=== PATIENT | male | born 1980 | race Caucasian/White ===

== ENCOUNTER 2018-10-23 14:16 | Emergency (ER) | payer OTHER ==
[2018-10-23] MEDS: SOD CHLORIDE 0.9% 1,000 ML IV (19:16)
[2018-10-23] MEDS: KETOROLAC 15 MG INJ IV (19:16)
[2018-10-23 19:17] LABS: ADD MAN DIFF? NO
[2018-10-23 19:19] LABS: BASOPHILS % 0.3 % (0.0-2.0); EOSINOPHILS % 0.4 % (0.0-7.0); HEMATOCRIT 31.9 % (42.0-52.0); LYMPHOCYTES # 2.1 10^3/ul (0.8-2.9); LYMPHOCYTES % 28.9 % (15.0-51.0); MEAN CORPUSCULAR HEMOGLOBIN 31.7 pg (29.0-33.0); MEAN CORPUSCULAR HGB CONC 34.5 g/dl (32.0-37.0); MEAN CORPUSCULAR VOLUME 91.9 fl (82.0-101.0); MEAN PLATELET VOLUME 8.6 fl (7.4-10.4); MONOCYTE # 0.7 10^3/ul (0.3-0.9); MONOCYTES % 9.5 % (0.0-11.0); NEUTROPHIL # 4.4 10^3/ul (1.6-7.5); NEUTROPHILS % 60.1 % (39.0-77.0); PLATELET COUNT 276 10^3/UL (140-415); RED BLOOD COUNT 3.47 10^6/ul (4.70-6.10); RED CELL DISTRIBUTION WIDTH 12.4 % (11.5-14.5)
[2018-10-23 19:19] LABS: WHITE BLOOD COUNT 7.3 10^3/ul (4.8-10.8)
[2018-10-23 19:45] LABS: ALANINE AMINOTRANSFERASE 37 IU/L (13-69); ALBUMIN/GLOBULIN RATIO 1.61; ALKALINE PHOSPHATASE 78 IU/L (42-121); ANION GAP 15 (5-13); ASPARTATE AMINO TRANSFERASE 27 IU/L (15-46); BILIRUBIN,INDIRECT 0.5 mg/dl (0-1.1); BILIRUBIN,TOTAL 0.5 mg/dl (0.2-1.3); BLOOD UREA NITROGEN 9 mg/dl (7-20); CALCIUM 10.2 mg/dl (8.4-10.2); CARBON DIOXIDE 25 mmol/L (21-31); CHLORIDE 102 mmol/L (97-110); CREATININE 0.66 mg/dl (0.61-1.24); Estimated GFR > 60 mL/min (>60); GLUCOSE 86 mg/dl (70-220); LIPASE 39 U/L (23-300); POTASSIUM 3.8 mmol/L (3.5-5.1); SODIUM 142 mmol/L (135-144); TOTAL PROTEIN 8.1 g/dl (6.1-8.1)
[2018-10-23 19:56] LABS: TROPONIN-I < 0.012 ng/ml (0.000-0.120)
[2018-10-23 20:06] LABS: ADD UMIC YES; UR ASCORBIC ACID NEGATIVE (NEGATIVE); UR BILIRUBIN (Dip) NEGATIVE (NEGATIVE); UR BLOOD (Dip) 1+ mg/dL (NEGATIVE); UR CLARITY SLIGHTLY CLOUDY (CLEAR); UR COLOR YELLOW (YELLOW); UR GLUCOSE (Dip) NEGATIVE (NEGATIVE); UR KETONES (Dip) TRACE mg/dL (NEGATIVE); UR LEUKOCYTE ESTERASE (Dip) NEGATIVE Leu/ul (NEGATIVE); UR MUCUS MANY /HPF (NONE SEEN); UR NITRITE (Dip) NEGATIVE (NEGATIVE); UR RBC 0 /HPF (0-5); UR SPECIFIC GRAVITY (Dip) 1.032 (1.003-1.030); UR TOTAL PROTEIN (Dip) 3+ mg/dl (NEGATIVE); UR UROBILINOGEN (Dip) NEGATIVE (NEGATIVE); UR WBC 2 /HPF (0-5)
== END 2018-10-23 20:46 | disposition home or self-care (01) ==
LOC: E/R 14:16
DX: M94.0 Chondrocostal junction syndrome [Tietze] (principal); R80.9 Proteinuria, unspecified
CPT/HCPCS: 36415; 71045; 80053; 81001; 83690; 84484; 85025; 93005; 96374; 99285-25

== ENCOUNTER 2018-12-17 16:30 | Inpatient (IN) | payer OTHER, BC ==
[2018-12-17 17:14] LABS: ADD MAN DIFF? NO
[2018-12-17 17:19] LABS: BASOPHILS % 0.4 % (0.0-2.0); EOSINOPHILS # 0.1 10^3/ul (0.0-0.5); EOSINOPHILS % 0.8 % (0.0-7.0); HEMATOCRIT 30.1 % (42.0-52.0); HEMOGLOBIN 9.7 g/dl (14.0-18.0); LYMPHOCYTES # 1.7 10^3/ul (0.8-2.9); LYMPHOCYTES % 21.5 % (15.0-51.0); MEAN CORPUSCULAR HGB CONC 32.2 g/dl (32.0-37.0); MEAN CORPUSCULAR VOLUME 96.2 fl (82.0-101.0); MONOCYTE # 1.1 10^3/ul (0.3-0.9); MONOCYTES % 13.7 % (0.0-11.0); NEUTROPHIL # 4.9 10^3/ul (1.6-7.5); NEUTROPHILS % 62.8 % (39.0-77.0); PLATELET COUNT 355 10^3/UL (140-415); RED BLOOD COUNT 3.13 10^6/ul (4.70-6.10); RED CELL DISTRIBUTION WIDTH 13.9 % (11.5-14.5)
[2018-12-17 17:19] LABS: WHITE BLOOD COUNT 7.8 10^3/ul (4.8-10.8)
[2018-12-17] MEDS: SODIUM CHLORIDE 0.9% 1L BAG IV* (17:30)
[2018-12-17] MEDS: ACETAMINOPHEN 325 MG TAB PO (17:30)
[2018-12-17] MEDS: VANCOMYCIN 1 GM (PMX) 250 ML IVPB ×2 (17:30→18:06)
[2018-12-17 17:34] LABS: ADD UMIC YES; UR ASCORBIC ACID NEGATIVE (NEGATIVE); UR BILIRUBIN (Dip) NEGATIVE (NEGATIVE); UR BLOOD (Dip) 1+ mg/dL (NEGATIVE); UR CLARITY SLIGHTLY CLOUDY (CLEAR); UR COLOR YELLOW (YELLOW); UR GLUCOSE (Dip) NEGATIVE (NEGATIVE); UR KETONES (Dip) TRACE mg/dL (NEGATIVE); UR LEUKOCYTE ESTERASE (Dip) NEGATIVE Leu/ul (NEGATIVE); UR MUCUS FEW /HPF (NONE SEEN); UR NITRITE (Dip) NEGATIVE (NEGATIVE); UR RBC 0 /HPF (0-5); UR SPECIFIC GRAVITY (Dip) 1.023 (1.003-1.030); UR TOTAL PROTEIN (Dip) 2+ mg/dl (NEGATIVE); UR UROBILINOGEN (Dip) NEGATIVE (NEGATIVE); UR WBC 2 /HPF (0-5)
[2018-12-17 17:37] LABS: INR 1.06; PROTIME 13.9 Sec (11.9-14.9); PT RATIO 1.1
[2018-12-17 17:38] LABS: PARTIAL THROMBOPLASTIN TIME 33.9 Sec (23.0-35.0)
[2018-12-17 17:43] LABS: ALANINE AMINOTRANSFERASE 31 IU/L (13-69); ALBUMIN 4.7 g/dl (3.3-4.9); ALBUMIN/GLOBULIN RATIO 1.38; ALKALINE PHOSPHATASE 107 IU/L (42-121); ANION GAP 12 (5-13); ASPARTATE AMINO TRANSFERASE 21 IU/L (15-46); BILIRUBIN,INDIRECT 0.2 mg/dl (0-1.1); BILIRUBIN,TOTAL 0.2 mg/dl (0.2-1.3); BLOOD UREA NITROGEN 6 mg/dl (7-20); CALCIUM 10.2 mg/dl (8.4-10.2); CARBON DIOXIDE 26 mmol/L (21-31); CHLORIDE 101 mmol/L (97-110); CREATININE 0.69 mg/dl (0.61-1.24); Estimated GFR > 60 mL/min (>60); GLUCOSE 99 mg/dl (70-220); POTASSIUM 4.2 mmol/L (3.5-5.1); SODIUM 139 mmol/L (135-144); TOTAL PROTEIN 8.1 g/dl (6.1-8.1)
[2018-12-17] MEDS: CEFEPIME 2GM/50 ML (PMX) 50 ML IVPB (17:45)
[2018-12-17 17:54] LABS: TROPONIN-I < 0.012 ng/ml (0.000-0.120)
[2018-12-17] MEDS: ALBUTEROL 0.083% (NEB) 2.5 MG/3 ML AMP NEB (17:58)
[2018-12-17] MEDS: SOD CHLORIDE 0.9% 1,000 ML IV ×2 (19:11→22:35)
[2018-12-17] MEDS ORDERED: ACETAMINOPHEN 325 MG TAB PO (19:30)
[2018-12-17] MEDS ORDERED: ONDANSETRON 4 MG INJ IV (19:30)
[2018-12-17] MEDS: LEVALBUTEROL (NEB) 1.25 MG/0.5 ML AMP INH (19:53)
[2018-12-17] MEDS: SOD CHLORIDE 0.9% 100 ML (19:59)
[2018-12-17] MEDS ORDERED: VANCOMYCIN IV PER PHARMACY XX (20:00)
[2018-12-17] MEDS ORDERED: NACL 0.9% 3 ML SYG IV (20:00)
[2018-12-17] MEDS: IOHEXOL 350MG/ML 50 ML BTL (20:00)
[2018-12-17] MEDS: IOHEXOL 100 ML (20:00)
[2018-12-17] MEDS: VANCOMYCIN 500 MG (PMX) 100 ML IVPB (22:36)
[2018-12-18 00:05] LABS: LACTIC ACID 1.9 mmol/L (0.5-2.0)
[2018-12-18] MEDS: CEFEPIME 2GM/50 ML (PMX) 50 ML IVPB ×4 (00:43→21:05)
[2018-12-18] MEDS: ACETAMINOPHEN 325 MG TAB PO (05:01)
[2018-12-18 05:24] LABS: ADD MAN DIFF? NO
[2018-12-18 05:26] LABS: WHITE BLOOD COUNT 7.8 10^3/ul (4.8-10.8)
[2018-12-18 05:26] LABS: BASOPHILS % 0.1 % (0.0-2.0); EOSINOPHILS % 0.3 % (0.0-7.0); HEMATOCRIT 25.9 % (42.0-52.0); LYMPHOCYTES # 1.8 10^3/ul (0.8-2.9); LYMPHOCYTES % 22.6 % (15.0-51.0); MEAN CORPUSCULAR HEMOGLOBIN 30.3 pg (29.0-33.0); MEAN CORPUSCULAR HGB CONC 30.9 g/dl (32.0-37.0); MEAN CORPUSCULAR VOLUME 98.1 fl (82.0-101.0); MEAN PLATELET VOLUME 9.2 fl (7.4-10.4); MONOCYTES % 13.2 % (0.0-11.0); NEUTROPHIL # 4.9 10^3/ul (1.6-7.5); NEUTROPHILS % 63.3 % (39.0-77.0); PLATELET COUNT 312 10^3/UL (140-415); RED BLOOD COUNT 2.64 10^6/ul (4.70-6.10)
[2018-12-18 05:41] LABS: ALANINE AMINOTRANSFERASE 25 IU/L (13-69); ALBUMIN 3.9 g/dl (3.3-4.9); ALBUMIN/GLOBULIN RATIO 1.34; ALKALINE PHOSPHATASE 74 IU/L (42-121); ANION GAP 17 (5-13); ASPARTATE AMINO TRANSFERASE 15 IU/L (15-46); BILIRUBIN,INDIRECT 0.2 mg/dl (0-1.1); BILIRUBIN,TOTAL 0.2 mg/dl (0.2-1.3); BLOOD UREA NITROGEN 4 mg/dl (7-20); CALCIUM 8.8 mg/dl (8.4-10.2); CARBON DIOXIDE 24 mmol/L (21-31); CHLORIDE 101 mmol/L (97-110); CREATININE 0.57 mg/dl (0.61-1.24); Estimated GFR > 60 mL/min (>60); GLUCOSE 99 mg/dl (70-220); MAGNESIUM 1.9 mg/dl (1.7-2.5); POTASSIUM 3.7 mmol/L (3.5-5.1); SODIUM 142 mmol/L (135-144); TOTAL PROTEIN 6.8 g/dl (6.1-8.1)
[2018-12-18] MEDS: GUAIFENESIN 20 MG/ML 5ML CUP PO ×2 (06:01→21:47)
[2018-12-18] MEDS: VANCOMYCIN 1 GM 250 ML IVPB ×3 (06:01→22:21)
[2018-12-18 07:05] LABS: HEMOGLOBIN A1C 5.2 % (0-5.9)
[2018-12-18] MEDS ORDERED: morphine 2 MG INJ IV (09:30)
[2018-12-18] MEDS ORDERED: HYDROCODONE/APAP (5/325) TAB PO (09:30)
[2018-12-18] MEDS: SOD CHLORIDE 0.9% 1,000 ML IV (10:20)
[2018-12-18] MEDS: ENOXAPARIN 40 MG/0.4 ML SYG SC (10:27)
[2018-12-18] MEDS: HYDROCODONE/APAP (10/325) TAB PO ×2 (13:46→21:03)
[2018-12-18 21:42] LABS: VANCOMYCIN,TROUGH 14.6 ug/ml (10.0-20.0)
[2018-12-19] MEDS: SOD CHLORIDE 0.9% 1,000 ML IV (00:49)
[2018-12-19] MEDS: CEFEPIME 2GM/50 ML (PMX) 50 ML IVPB (05:23)
[2018-12-19] MEDS: VANCOMYCIN 1 GM 250 ML IVPB (06:21)
[2018-12-19] MEDS: HYDROCODONE/APAP (10/325) TAB PO ×2 (06:26→11:49)
[2018-12-19 06:27] LABS: ADD MAN DIFF? NO
[2018-12-19 06:33] LABS: BASOPHILS % 0.4 % (0.0-2.0); EOSINOPHILS # 0.1 10^3/ul (0.0-0.5); EOSINOPHILS % 1.6 % (0.0-7.0); HEMATOCRIT 24.9 % (42.0-52.0); HEMOGLOBIN 7.9 g/dl (14.0-18.0); LYMPHOCYTES # 1.3 10^3/ul (0.8-2.9); MEAN CORPUSCULAR HGB CONC 31.7 g/dl (32.0-37.0); MEAN CORPUSCULAR VOLUME 97.6 fl (82.0-101.0); MEAN PLATELET VOLUME 9.5 fl (7.4-10.4); MONOCYTE # 0.8 10^3/ul (0.3-0.9); MONOCYTES % 13.7 % (0.0-11.0); NEUTROPHIL # 3.4 10^3/ul (1.6-7.5); NEUTROPHILS % 60.2 % (39.0-77.0); PLATELET COUNT 277 10^3/UL (140-415); RED BLOOD COUNT 2.55 10^6/ul (4.70-6.10)
[2018-12-19 06:33] LABS: WHITE BLOOD COUNT 5.7 10^3/ul (4.8-10.8)
[2018-12-19 07:08] LABS: ANION GAP 13 (5-13); BLOOD UREA NITROGEN 6 mg/dl (7-20); CALCIUM 8.9 mg/dl (8.4-10.2); CARBON DIOXIDE 23 mmol/L (21-31); CHLORIDE 106 mmol/L (97-110); Estimated GFR > 60 mL/min (>60); GLUCOSE 86 mg/dl (70-220); MAGNESIUM 2.2 mg/dl (1.7-2.5); PHOSPHORUS 3.5 mg/dl (2.5-4.9); SODIUM 142 mmol/L (135-144)
[2018-12-19 07:24] LABS: IRON 33 ug/dl (35-150)
[2018-12-19 07:35] LABS: % IRON SATURATION 14 % SAT (22-52); TOTAL IRON BINDING CAPACITY 234 ug/dl (241-421)
[2018-12-19] MEDS: GUAIFENESIN/DM 5ML CUP PO ×2 (07:46→11:49)
[2018-12-19 08:01] LABS: FOLATE 11.8 ng/ml (2.8-20.0)
[2018-12-19] MEDS: ENOXAPARIN 40 MG/0.4 ML SYG SC (08:51)
== END 2018-12-19 12:15 | disposition home or self-care (01) | DRG 564 ==
LOC: E/R 16:30 → 6WM 19:12
DX: S22.20XA Unspecified fracture of sternum, initial encounter for closed fracture (principal); J18.9 Pneumonia, unspecified organism; S22.059A Unspecified fracture of T5-T6 vertebra, initial encounter for closed fracture; C90.00 Multiple myeloma not having achieved remission; J98.11 Atelectasis; R09.02 Hypoxemia; Z79.899 Other long term (current) drug therapy; X58.XXXA Exposure to other specified factors, initial encounter
CPT/HCPCS: 36415; 71045; 71275; 80048; 80053; 80202; 81001; 82607; 82728; 82746; 83036; 83540; 83605; 83735; 84100; 84443; 84484; 85025; 85610; 85730; 87040; 87086; 87400; 93005; 93306; 94644; 94664; 96365; 96375; 97162; 99285-25